=== PATIENT | female | born 1975 | race Two or more races ===

== ENCOUNTER 2024-06-18 14:22 | Inpatient (IN) | payer MEDICAID ==
[~2024-06-18] VITALS: Ht 167.6 cm; Wt 70.8 kg
[2024-06-18 15:39] LABS: Urine Bacteria FEW /hpf (None Seen); Urine Blood Negative /uL (Negative); Urine Clarity Clear (Clear); Urine Color Colorless (Yellow); Urine Protein, UAD Negative (Negative); Urine Specific Gravity 1.003 (1.001-1.035); Urine Urobilinogen Normal (Negative); Urine WBC <1 /hpf (0 - 5); Urine pH 6.5 (5.0-9.0)
[2024-06-18 15:54] LABS: Hematocrit 43.6 % (36.0-46.0); Red Blood Cells 4.94 10^6/uL (4.0-5.20); Red Cell Distribution Width 13.4 % (11.8-14.3)
[2024-06-18 15:56] LABS: Hemoglobin 15.1 g/dL (12.2-16.2); Mean Corpuscular Hemoglobin 30.5 pg (28.0-32.0); Mean Corpuscular Hgb Conc. 34.6 g/dL (32.0-36.0); Mean Corpuscular Volume 88.2 fL (80.0-100.0)
[2024-06-18 16:07] LABS: White Blood Cell 1.8 10^3/uL (4.4-10.8)
[2024-06-18 16:09] LABS: Basophils % (manual) 0 (0.0-2.0); Blast Cells 0; Eosinophils % (manual) 0 (0-7); Metamyelocytes % 0; Myelocytes % 0; Promyelocytes % 0; Reactive Lymphocytes 0
[2024-06-18 16:11] LABS: Alanine Aminotransferase 35 U/L (7-40); Albumin 4.2 g/dL (3.2-4.8); Alkaline Phosphatase 92 U/L (46-116); Anion Gap 11 (5-15); Aspartate Aminotransferase 34 U/L (13-40); Calcium 8.9 mg/dL (8.7-10.4); Carbon Dioxide 22 mmol/L (20-30); Chloride 107 mmol/L (98-107); Glucose 109 mg/dL (74-106); Potassium 3.3 mmol/L (3.5-5.1); Sodium 140 mmol/L (136-145)
[2024-06-18 16:12] LABS: Bilirubin, Total 0.4 mg/dL (0.2-1.0); Total Protein 6.8 g/dL (5.7-8.2)
[2024-06-18 16:24] LABS: BUN/Creatinine Ratio 6.1 (10.0-20.0); Blood Urea Nitrogen < 5 mg/dL (9-23)
[2024-06-18 16:25] LABS: Lipase 51 U/L (12-53)
[2024-06-18 16:42] LABS: Band Neutrophils % (manual) 0; Lymphocytes % (manual) 40 (10.0-50.0); Monocytes % (manual) 11 (0-12); Platelet Estimate Decreased; RBC Morphology Normal
[2024-06-18 17:15] VITALS: PULSE 84; RESP 16; O2SAT 97
[2024-06-18] MEDS ORDERED: DOCUSATE SOD 100 MG CAP PO PRN (17:30)
[2024-06-18] MEDS ORDERED: ACETAMINOPHEN 325 MG TAB PO PRN (17:30)
[2024-06-18] MEDS ORDERED: HYDROmorphone HCL 2 MG/ML VL/or syr IV PRN (17:30)
[2024-06-18] MEDS: cefTRIAXone 1GM/50ML D5W 50 ML IV SCH (17:38)
[2024-06-18 17:55] LABS: Basophils # (auto) 0 10 ^3/uL (0-0.2); Basophils % (auto) 0.3 % (0.0-2.0); Eosinophils # (auto) 0 10 ^3/uL (0-0.8); Hematocrit 42.5 % (36.0-46.0); Hemoglobin 14.7 g/dL (12.2-16.2); Lymphocytes # (auto) 0.4 10 ^3/uL (0.4-5.4); Mean Corpuscular Hemoglobin 30.7 pg (28.0-32.0); Mean Corpuscular Hgb Conc. 34.6 g/dL (32.0-36.0); Mean Corpuscular Volume 88.7 fL (80.0-100.0); Monocytes # (auto) 0.1 10 ^3/uL (0-1.3); Monocytes % (auto) 4.8 % (0.0-12.0); Neutrophils # (auto) 1.9 10 ^3/uL (1.6-8.6); Neutrophils % (auto) 77.9 % (37.0-80.0); Nucleated Red Blood Cells % 0.3 %; Red Blood Cells 4.79 10^6/uL (4.0-5.20); Red Cell Distribution Width 13.5 % (11.8-14.3); White Blood Cell 2.4 10^3/uL (4.4-10.8)
[2024-06-18] MEDS ORDERED: metroNIDAZOLE 500MG/100ML 100 ML IV SCH (18:00)
[2024-06-18] MEDS: LACTATED RINGER'S 1,000 ML IV ONE (18:17)
[2024-06-18] MEDS: metroNIDAZOLE 500MG/100ML 100 ML IV SCH (18:24)
[2024-06-18] MEDS: ONDANSETRON HCL 4 MG/2 ML VIAL IV PRN (18:43)
[2024-06-18 20:00] VITALS: PULSE 77; RESP 21; O2SAT 97
[2024-06-18] MEDS: HYDROcodone-ACET 5/325MG TAB PO PRN (22:10)
[2024-06-18] MEDS: SODIUM CHLOR 0.9% PF (SALINE LOCK) 10ML VIAL/SYR IV SCH (22:14)
[2024-06-19] VITALS (9 sets, daily range): BP systolic 98–113; BP diastolic 52–78; PULSE 70–85; RESP 14–19; TEMP 97.7–99.7; O2SAT 95–99
[2024-06-19] MEDS ORDERED: AMOX500T3 PO (01:04)
[2024-06-19] MEDS ORDERED: RIFA1CAP5 PO (01:04)
[2024-06-19] MEDS ORDERED: CIPR500T4 PO (01:04)
[2024-06-19 08:57] LABS: Chloride 107 mmol/L (98-107); Potassium 3.1 mmol/L (3.5-5.1); Sodium 138 mmol/L (136-145)
[2024-06-19 08:58] LABS: Anion Gap 6 (5-15); Calcium 8.1 mg/dL (8.7-10.4); Carbon Dioxide 25 mmol/L (20-30)
[2024-06-19 09:03] LABS: BUN/Creatinine Ratio 10.6 (10.0-20.0); Blood Urea Nitrogen 7 mg/dL (9-23); Glucose 89 mg/dL (74-106)
[2024-06-19 09:09] LABS: Basophils # (auto) 0 10 ^3/uL (0-0.2); Basophils % (auto) 0.3 % (0.0-2.0); Eosinophils # (auto) 0 10 ^3/uL (0-0.8); Hematocrit 38.9 % (36.0-46.0); Hemoglobin 13.4 g/dL (12.2-16.2); Lymphocytes # (auto) 0.7 10 ^3/uL (0.4-5.4); Lymphocytes % (auto) 26.3 % (10.0-50.0); Mean Corpuscular Hemoglobin 30.4 pg (28.0-32.0); Mean Corpuscular Hgb Conc. 34.6 g/dL (32.0-36.0); Mean Corpuscular Volume 87.9 fL (80.0-100.0); Monocytes # (auto) 0.2 10 ^3/uL (0-1.3); Neutrophils # (auto) 1.7 10 ^3/uL (1.6-8.6); Neutrophils % (auto) 66.4 % (37.0-80.0); Nucleated Red Blood Cells % 1.1 %; Red Blood Cells 4.42 10^6/uL (4.0-5.20); Red Cell Distribution Width 13.3 % (11.8-14.3); White Blood Cell 2.6 10^3/uL (4.4-10.8)
[2024-06-19 09:43] LABS: Hepatitis B Surface Antigen Negative (Negative)
[2024-06-19] MEDS: ENOXAPARIN SOD 40 MG/0.4 ML SYRINGE SC SCH (09:43)
[2024-06-19 10:04] LABS: Hepatitis C Antibody Negative (Negative)
[2024-06-19] MEDS: D5W/SOD CHL 0.9%/KCL 40MEQ 1,000 ML IV SCH (18:05)
[2024-06-20] VITALS (8 sets, daily range): BP systolic 103–113; BP diastolic 63–73; PULSE 61–75; RESP 16–20; TEMP 98.1–98.8; O2SAT 96–99
[2024-06-20 06:57] LABS: Hemoglobin 14.6 g/dL (12.2-16.2); Mean Corpuscular Hemoglobin 31.3 pg (28.0-32.0); Mean Corpuscular Hgb Conc. 35.6 g/dL (32.0-36.0); Mean Corpuscular Volume 87.8 fL (80.0-100.0); Red Blood Cells 4.67 10^6/uL (4.0-5.20); Red Cell Distribution Width 13.3 % (11.8-14.3); White Blood Cell 2.4 10^3/uL (4.4-10.8)
[2024-06-20 07:08] LABS: Alanine Aminotransferase 64 U/L (7-40); Albumin 3.6 g/dL (3.2-4.8); Alkaline Phosphatase 76 U/L (46-116); Anion Gap 7 (5-15); Aspartate Aminotransferase 68 U/L (13-40); BUN/Creatinine Ratio 7.6 (10.0-20.0); Blood Urea Nitrogen 5 mg/dL (9-23); Calcium 8.7 mg/dL (8.7-10.4); Carbon Dioxide 27 mmol/L (20-30); Chloride 106 mmol/L (98-107); Glucose 100 mg/dL (74-106); Potassium 3.6 mmol/L (3.5-5.1); Sodium 140 mmol/L (136-145)
[2024-06-20 07:09] LABS: Bilirubin, Total 0.3 mg/dL (0.2-1.0); Total Protein 6.2 g/dL (5.7-8.2)
[2024-06-20 07:20] LABS: Band Neutrophils % (manual) 0; Basophils % (manual) 0 (0.0-2.0); Blast Cells 0; Eosinophils % (manual) 0 (0-7); Metamyelocytes % 0; Myelocytes % 0; Promyelocytes % 0; Reactive Lymphocytes 0
[2024-06-20 09:40] LABS: Lymphocytes % (manual) 47 (10.0-50.0); Monocytes % (manual) 8 (0-12)
[2024-06-20 09:41] LABS: Platelet Estimate Decreased
[2024-06-21] VITALS (8 sets, daily range): BP systolic 103–126; BP diastolic 63–78; PULSE 58–82; RESP 16–18; TEMP 98–98.4; O2SAT 95–98
[2024-06-21 05:59] LABS: Hematocrit 41.7 % (36.0-46.0); Hemoglobin 14.5 g/dL (12.2-16.2); Mean Corpuscular Hemoglobin 30.6 pg (28.0-32.0); Mean Corpuscular Hgb Conc. 34.8 g/dL (32.0-36.0); Red Blood Cells 4.74 10^6/uL (4.0-5.20); Red Cell Distribution Width 13.3 % (11.8-14.3); White Blood Cell 2.7 10^3/uL (4.4-10.8)
[2024-06-21 06:03] LABS: Anion Gap 6 (5-15); Carbon Dioxide 26 mmol/L (20-30); Chloride 108 mmol/L (98-107); Potassium 3.6 mmol/L (3.5-5.1); Sodium 140 mmol/L (136-145)
[2024-06-21 06:04] LABS: Calcium 8.5 mg/dL (8.7-10.4)
[2024-06-21 06:09] LABS: Glucose 94 mg/dL (74-106)
[2024-06-21 06:23] LABS: BUN/Creatinine Ratio 8.9 (10.0-20.0); Band Neutrophils % (manual) 0; Basophils % (manual) 0 (0.0-2.0); Blast Cells 0; Blood Urea Nitrogen < 5 mg/dL (9-23); Eosinophils % (manual) 0 (0-7); Metamyelocytes % 0; Myelocytes % 0; Promyelocytes % 0; Reactive Lymphocytes 0
[2024-06-21 08:02] LABS: Lymphocytes % (manual) 55 (10.0-50.0); Monocytes % (manual) 4 (0-12); Platelet Estimate Decreased
[2024-06-22 01:00] VITALS: BP 115/75; PULSE 72; RESP 20; TEMP 98.3; O2SAT 97
[2024-06-22 05:00] VITALS: BP 112/64; PULSE 78; RESP 18; TEMP 98.3; O2SAT 97
[2024-06-22] MEDS ORDERED: VANCOMYCIN HCL 125 MG CAP PO SCH (06:45)
[2024-06-22 07:16] LABS: Basophils # (auto) 0 10 ^3/uL (0-0.2); Basophils % (auto) 0.2 % (0.0-2.0); Eosinophils # (auto) 0 10 ^3/uL (0-0.8); Eosinophils % (auto) 0.3 % (0.0-7.0); Hematocrit 41.9 % (36.0-46.0); Hemoglobin 14.7 g/dL (12.2-16.2); Lymphocytes # (auto) 1.5 10 ^3/uL (0.4-5.4); Mean Corpuscular Hemoglobin 30.8 pg (28.0-32.0); Mean Corpuscular Hgb Conc. 35.2 g/dL (32.0-36.0); Mean Corpuscular Volume 87.4 fL (80.0-100.0); Monocytes # (auto) 0.3 10 ^3/uL (0-1.3); Neutrophils # (auto) 2.2 10 ^3/uL (1.6-8.6); Neutrophils % (auto) 54.5 % (37.0-80.0); Nucleated Red Blood Cells % 0.2 %; Red Blood Cells 4.79 10^6/uL (4.0-5.20); Red Cell Distribution Width 13.1 % (11.8-14.3)
[2024-06-22 07:28] LABS: Anion Gap 6 (5-15); Calcium 8.9 mg/dL (8.7-10.4); Carbon Dioxide 26 mmol/L (20-30); Chloride 108 mmol/L (98-107); Potassium 3.6 mmol/L (3.5-5.1); Sodium 140 mmol/L (136-145)
[2024-06-22 07:34] LABS: Glucose 93 mg/dL (74-106)
[2024-06-22 07:37] LABS: BUN/Creatinine Ratio 9.6 (10.0-20.0); Blood Urea Nitrogen < 5 mg/dL (9-23)
[2024-06-22 08:00] VITALS: PULSE 74; RESP 16; O2SAT 98
[2024-06-22 09:00] VITALS: BP 116/73; PULSE 74; RESP 18; TEMP 98.2; O2SAT 98
[2024-06-22] MEDS: METOCLOPRAMIDE HCL 10 MG TAB PO ONE (10:11)
[2024-06-22] MEDS ORDERED: PANT40T PO (12:05)
[2024-06-22 12:59] VITALS: BP 116/73; PULSE 74; RESP 18; TEMP 98.2; O2SAT 98
[2024-06-22 13:00] VITALS: BP 120/76; PULSE 70; RESP 18; TEMP 98; O2SAT 99
[2024-06-22] MEDS ORDERED: METOCLOPRAMIDE HCL 10 MG TAB PO SCH (14:00)
== END 2024-06-22 14:37 | disposition home or self-care (01) | DRG 249 ==
LOC: ER 14:26 → OVERFLOW 17:28 → WEST WING 23:48
PROVIDERS: ADMIT Internal Medicine Geriatric Medicine; ATTEND Internal Medicine Geriatric Medicine
DX: A08.4 Viral intestinal infection, unspecified (principal); D69.6 Thrombocytopenia, unspecified; D70.9 Neutropenia, unspecified; E86.0 Dehydration; E87.6 Hypokalemia; E07.9 Disorder of thyroid, unspecified; Z98.51 Tubal ligation status
CPT/HCPCS: 36415; 74176; 80048; 80053; 81001; 83605; 83690; 84443; 85007; 85025; 85027; 85048; 86703; 86803; 87040; 87045; 87177; 87340; 87427; 87493; G0378; J2405; J3490